=== PATIENT | male | born 2005 | race Caucasian/White ===

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

== ENCOUNTER 2024-09-30 23:28 | Emergency (ER) | payer OTHER ==
[2024-09-30 23:34] VITALS: BP 130/92; PULSE 112; RESP 18; TEMP 98.6; BMI 22.4
[2024-09-30] MEDS ORDERED: IBUPROFEN 600 MG TABLET (FP) PO ONE (23:34)
[2024-09-30] MEDS: IBUPROFEN 600 MG TABLET (FP) PO ONE (23:37)
== END 2024-10-01 01:35 | disposition home or self-care (01) ==
LOC: FER 23:28
DX: S63.601A Unspecified sprain of right thumb, initial encounter (principal); W10.9XXA Fall (on) (from) unspecified stairs and steps, initial encounter
CPT/HCPCS: 73140-TC-RT-FY; 99283-25